=== PATIENT | male | born 1945 | race Caucasian/White ===

== ENCOUNTER 2024-10-30 10:48 | Day surgery (SDC) | payer MEDICARE, BC, SELFPAY ==
[2024-10-30] VITALS (8 sets, daily range): BP systolic 113–140; BP diastolic 58–123; BMI 39.4
[2024-10-30 11:29] LABS: Mean Corp Hgb Conc. 32.6 g/dL (33.0-37.0); Mean Corpuscular Hgb 26.1 pg (27.0-31.0); Mean Corpuscular Volume 80.2 fL (80.0-94.0); Mean Platelet Volume 11.6 fL (7.4-10.4); Platelet Count 226 10^3/uL (130-400); Red Blood Cell Count 5.36 10^6/uL (4.70-6.10); White Blood Cell Count 10.1 10^3/uL (4.8-10.8)
[2024-10-30 11:36] LABS: Blood Urea Nitrogen 27 mg/dl (9-20); Calcium 9.2 mg/dl (8.4-10.2); Carbon Dioxide 28 mmol/L (22-30); Chloride 103 mmol/L (98-107); Estimated Creatinine Clearance 59 ml/min; Glucose 104 mg/dl (70-99); Potassium 4.9 mmol/L (3.5-5.1); Sodium 139 mmol/L (135-145); eGFR > 60.00
[2024-10-30 11:46] LABS: Glucose - Point of Care 87 mg/dl (70-99)
--- NOTE | 2024-10-30 18:16 | ITS.CL.PACE ---
Accounting Supervisor - Pacemaker Implant
Pacemaker Implant
Procedure Report:
Primary Care Doctor: Belinda Guan MD
Primary Development Planner: Cliff Damon MD
Procedure Date: 10/30/2024
Name of procedure:
1. Placement of a single-chamber pacemaker
2. Subclavian venography
History:
1. Patient is pleasant 79-year-old male with a past medical history significant for diabetes mellitus type 2, obesity, excessive edema, hypertension, permanent atrial fibrillation previously rate controlled however patient experienced symptomatic
bradycardia off AV matty blocking agents.
2. Please refer to H&P for complete history.
Indication:
Symptomatic irreversible bradycardia not on AV matty blocking agents
Permanent Atrial Fibrillation
Methods:
After informed consent was obtained, the patient was brought to the EP laboratory in a postabsorptive, nonsedated state. Peripheral IV access was established. Prophylactic antibiotics were administered prior to incision. Continuous ECG, blood
pressure, and pulse oximetry were initiated. Cardioversion patch electrodes were placed on the patient's chest and back. A grounding patch was applied to the skin. Sedation was administered by anesthesia services.
In order to define the extrathoracic portion of the subclavian vein and exclude significant venous obstruction or anomalous anatomy, subclavian venography was performed prior to the procedure. Using the patient's left peripheral IV, contrast was
injected and images were recorded. The left subclavian vein and SVC were found to be widely patent.
The left chest was prepared and draped in a sterile fashion. A time-out was performed. Local anesthesia was injected in the subcutaneous tissue in the infraclavicular area. An incision was made medial to the deltopectoral groove. The subcutaneous
tissue was dissected the level of the prepectoral fascia. A subcutaneous pocket was created. Under fluoroscopic guidance and with the assistance of the images from the venogram, a venipuncture was made using micropuncture and modified Seldinger
technique. This was performed in the extrathoracic portion of the subclavian vein. Guidewire was passed and peel-away sheaths was placed, and used to advance lead into the circulation.
Fluoroscopy was used to determine likely anatomic site for left bundle branch pacing. The [employer] Solutionstronic C315 sheath was used to deliver the Medtronic 3830 Selectsecure pacing lead with the helix exposed just exposed from the sheath tip during continuous
monitoring when pacemapping the septum during gentle clockwise rotation to obtain a paced QRS morphology of a W pattern in lead V1. Once the suspected optimal site was identified, lead deployment was performed with several rapid rotations as paced
QRS morphology was intermittently monitored until a paced QRS complex in lead V1 demonstrated development of an R wave (qR or rSR). Unipolar pacing impedance dropped by approximately 100-200 ohms suggesting it had reached the left ventricular
subendocardial. During testing after sheath split, the 3830 lead dislodged. Access reobtained in fashion as mentioned above and the 3830 was removed from circulation under fluoroscopy. 5076 active fix lead was advanced into circulation, into the
RVOT with RV ectopy noted. Following multiple attempts, a stable position was found on the apical RV septum. However, during lead tie down, there was acute lead dislodgement. Access reobtained as mentioned above and the 5076 lead was removed from
circulation under fluoroscopy. Next, coronary sinus cannulation was attempted for placement of a LV active fix lead. A multipurpose sheath for CS lead placement was advanced through the short peel-away sheath. However, despite multiple attempts, CS
was unable to be cannulated. A non-selective venogram at the CS ostium demonstrated CS occlusion/atresia of the CS. The multipurpose CS lead sheath was removed. Next, a passive fix pacing lead was advanced into circulation, into the RVOT with RV
ectopy noted, and placed in the RV apical septum in standard fashion. After careful monitoring, the sheath was split. The lead was tied into place with suture in standard fashion. An additional suture was placed around the access site for
hemostasis. Lead pacing and impedance remained stable during this process.
The pocket was flushed with antibiotic solution and hemostasis was assured. The generator was connected to the leads and placed inside the pocket. The device was sutured to the fascia. Antibiotic envelope was used. Surgiflo was applied. The wound
was closed with 3 running layers of absorbable suture, and steri-strips were applied. Dressing applied over steri-strips in standard fashion. Device testing at case completion demonstrated stable lead position and values.
Following the procedure, the patient was noted to be agitated. Patient followed directions, AOx2, moving all extremities, PERRLA. However, due to the mental status change, neuro eval/rapid was called. I spoke with Dr Farris who stated patient out
of TNK window but advised for CT head, CTA head and neck, lab work. During evaluation, patient's mental status continued to improve with improving agitation. No apparent slurred speech or deficits. Dr Farris stated she would see patient as consult
in AM.
Lead parameters and device programming:
- RV Lead (Medtronic, Model 4074, #[id number]): Sensing 5.0 mV, Pacing threshold 04 V at 0.4 ms, Imp 820 Ohm
- Device: Medtronic, [id number] pacemaker (#[id number]), programmed VVIR 60-130 ppm
Conclusions:
1. Successful placement of a single-chamber pacemaker
2. Subclavian venography
Recommendations:
1. Admit
2. Chest xray tonight, [facility] in AM
3. IV antibiotics while the patient is admitted.
4. OK to resume home medications as indicated; plan to resume OAC on 11/02/2024 if patient stable at DC
5. Pressure dressing to be removed in AM, aquacell to remain until wound check
6. Follow-up will be arranged in the office in 7-10 days post-discharge
7. As noted above, CT Head, CTA head and neck, lab work
Marvin Goins DO, FACC
Clinical Cardiac Solution Architect
cc: Dr Cliff Damon; Belinda Guan MD
[2024-10-30 18:35] LABS: Glucose - Point of Care 109 mg/dl (70-99)
[2024-10-30] MEDS: SYMBICORT 160/4.5 MCG INHALER 2 PUFF INH (19:29)
--- NOTE | 2024-10-30 20:15 | PTCARENOTE ---
Rec'd report from [facility] from ICU; Pt was RR in PACU for change of mental status s/p PPM insertion. Rec'd pt after Head CT; Pt transferred by staff from stretcher to bed. Pt AAOx3 w/no c/o CP or SOB. Pt speaks [place] Leonean as his primary language but
speaks & understand Occitan very well. Pt w/L chest wall PPM site w/dressing C/D/I w/no signs or symptoms of bleeding or hematoma. Pt's VSS w/HR 60 & BP 113/59 on arrival. Pt's 98% on NRB mask. Pt's switched to 2L O2 via NC. Pt reports wearing O2 at
home at bedtime. Bed alarm in place for safety. Pt's at bedside & call stark within reach.
[2024-10-30] MEDS: LIPITOR 40 MG PO (21:02)
[2024-10-30] MEDS: FLUSH (NSS) 2 FLUSH IV (21:02)
[2024-10-30] MEDS: ANCEF 5 IV (21:02)
[2024-10-30] MEDS: TOPROL XL 25 MG PO (21:02)
[2024-10-30 23:13] LABS: Glucose - Point of Care 237 mg/dl (70-99)
[2024-10-30 23:53] LABS: Hematocrit 39.4 % (39.0-52.0); Hemoglobin 12.7 g/dL (13.0-18.0); Mean Corp Hgb Conc. 32.2 g/dL (33.0-37.0); Mean Corpuscular Hgb 26.1 pg (27.0-31.0); Mean Corpuscular Volume 81.1 fL (80.0-94.0); Mean Platelet Volume 10.4 fL (7.4-10.4); Platelet Count 192 10^3/uL (130-400); Red Blood Cell Count 4.86 10^6/uL (4.70-6.10); Red Cell Dist. Width 15.9 % (11.5-14.5); White Blood Cell Count 8.7 10^3/uL (4.8-10.8)
[2024-10-31 00:12] LABS: ALT (SGPT) 18 U/L (0-50); AST (SGOT) 25 U/L (17-59); Albumin 3.3 g/dl (3.5-5.0); Alkaline Phosphatase 51 U/L (38-126); Blood Urea Nitrogen 30 mg/dl (9-20); Calcium 8.4 mg/dl (8.4-10.2); Carbon Dioxide 25 mmol/L (22-30); Chloride 103 mmol/L (98-107); Estimated Creatinine Clearance 65 ml/min; Glucose 255 mg/dl (70-99); Potassium 5.1 mmol/L (3.5-5.1); Sodium 136 mmol/L (135-145); Total Bilirubin 0.8 mg/dl (0.2-1.3); Total Protein 5.6 g/dl (6.3-8.2); eGFR > 60.00
[2024-10-31 02:03] VITALS: BMI 39.6
[2024-10-31 04:57] VITALS: BP 126/75
[2024-10-31] MEDS: ANCEF 5 IV (04:58)
[2024-10-31] MEDS: FLUSH (NSS) 2 FLUSH IV (04:59)
[2024-10-31 05:32] LABS: Hematocrit 39.4 % (39.0-52.0); Hemoglobin 12.8 g/dL (13.0-18.0); Mean Corp Hgb Conc. 32.5 g/dL (33.0-37.0); Mean Corpuscular Hgb 26.4 pg (27.0-31.0); Mean Corpuscular Volume 81.4 fL (80.0-94.0); Platelet Count 190 10^3/uL (130-400); Red Blood Cell Count 4.84 10^6/uL (4.70-6.10); Red Cell Dist. Width 15.9 % (11.5-14.5); White Blood Cell Count 7.8 10^3/uL (4.8-10.8)
[2024-10-31 06:16] LABS: Blood Urea Nitrogen 29 mg/dl (9-20); Calcium 8.8 mg/dl (8.4-10.2); Carbon Dioxide 27 mmol/L (22-30); Chloride 105 mmol/L (98-107); Estimated Creatinine Clearance 66 ml/min; Glucose 160 mg/dl (70-99); Potassium 5.2 mmol/L (3.5-5.1); Sodium 138 mmol/L (135-145); eGFR > 60.00
--- NOTE | 2024-10-31 06:18 | PTCARENOTE ---
Pt continues to be AAOx3 w/no signs of mental status issues. Neurochecks WNL. Pt able to transfer w/contact guard assistance to . [facility] dressing site C/D/I w/no signs or symptoms of bleeding or hematoma. Pt w/call stark within reach. No addtl needs
at this time.
[2024-10-31 07:27] VITALS: BMI 39.6
[2024-10-31 07:36] VITALS: BP 133/70
[2024-10-31] MEDS: SYMBICORT 160/4.5 MCG INHALER 2 PUFF INH (08:08)
[2024-10-31] MEDS: SPIRIVA RESPIMAT 2.5 MCG 2 PUFF INH (08:09)
[2024-10-31] MEDS: ADVAIR HFA 45/21 MCG INHALER 2 PUFF INH (08:09)
[2024-10-31 08:11] LABS: Glucose - Point of Care 92 mg/dl (70-99)
[2024-10-31] MEDS: TOPROL XL 25 MG PO (08:12)
[2024-10-31] MEDS: LASIX 20 MG IV (08:12)
[2024-10-31] MEDS: COLCHICINE 0.3 MG PO (08:13)
[2024-10-31] MEDS: TYLENOL 650 MG PO ×2 (08:16→13:23)
--- NOTE | 2024-10-31 08:22 | CON.NEURO ---
Consultation
Order
Requesting Provider: Marvin Goins MD
Reason for Consult: stroke alert
Called in 18:39 on 10/30/2024
Neurology Consultation Note
HPI: This is a 79 year old man who underwent elective PPM on 10/30/2024 and developed agitation following the procedure.
Last time seen in [place]: 14:13.
The patient denies having headache, change in vision, strength, sensation of speech or language.
MAR: Dexamethasone 8 mg given at 14:30 on 10/30/2024, propofol 60 mg given at 16: 46, midazolam 2 mg given at 14:24.
CT head wo contrast (10/30/2024)�mild atrophy.
CTA head/neck (10/30/2024)�no hemodynamically significant stenosis.
Labs: Glucose�255, normal WBCs, sodium.
PDMP�no recently prescribed medications.
PMH: PA A-Fib, SSS, HTN, DM, CHF, vit B12, BMI 39.4, gout
PSH: PPM, bilateral cataract surgery
SH: , originally from 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
FH: Not contributory to current presentation
All: NKDA
ROS: Constitutional: Negative. Negative for chills, fever and unexpected weight change.
HENT: Negative for ear pain, hearing loss, tinnitus and trouble swallowing.
Eyes: Negative. Negative for photophobia, pain and visual disturbance.
Respiratory: Negative for cough, choking and shortness of breath.
Cardiovascular: Negative for chest pain, palpitations and leg swelling.
Gastrointestinal: Negative for abdominal pain and vomiting.
Endocrine: Negative. Negative for cold intolerance.
Genitourinary: Negative for dysuria, flank pain and urgency.
Musculoskeletal: Negative for back pain, gait problem, neck pain and neck stiffness.
Skin: Negative for rash.
Allergic/Immunologic: Negative. Negative for immunocompromised state.
Neurological: Positive for transient encephalopathy
Psychiatric/Behavioral: Negative for behavioral problems, confusion and hallucinations.
General: Well developed. In no acute distress.
Cardio: Regular rate and rhythm without murmur. Extremities are without cyanosis or edema.
Neuro:
Mental Status: Alert, oriented to person, place, and date. Normal attention and recall. Good fund of knowledge. Follows complex requests across the midline. Comprehension, naming, and repetition intact. Immediate recall 3/3.
Cranial Nerves: Pupils are equally round, surgical. EOMs full. Visual cabral full to confrontation. No ptosis. No nystagmus. V1-V3 intact to light touch and pinprick bilaterally, symmetric. Face symmetric. Mildly impaired hearing AU. The
palate elevated well. SCMs and traps 5/5. Tongue midline. No dysarthria.
Motor: Normal bulk and tone. No pronator or arm drift. Strength 5/5 throughout. No clonus.
Reflexes: 2+ throughout the upper extremities and knees. Plantar responses flexor bilaterally.
Sensory: Normal vibration at the ankles
Coordination: No dysmetria or tremor.
Gait: deferred
Assessment and Plan:
I. Transient encephalopathy, likely toxic (from dexamethasone). Low suspicion for cerebrovascular event given lack of stroke syndrome.
II. AFib
III. Hyperglycemia
-Strict glycemic and blood pressure control
-Restart Eliquis for stroke prophylaxis based on cardiology recommendation
-No need in additional neurological testing
-Please recall neurology services any questions or concerns
I personally reviewed all radiology and labs along with past medical records pertinent to current medical problems. Total time spent in patient care is 60 minutes.
Thank you for allowing us to participate in the care of this patient. We will continue to follow. Please do not hesitate to contact us with any questions or concerns.
Subjective/Objective
Subjective Data
Date of Service: October 31, 2024
Objective Data
Vital Signs
Temp Pulse Resp BP Pulse Ox
36.6 C 63 20 133/70 94
10/31/24 04:57 10/31/24 08:00 10/31/24 04:57 10/31/24 07:36 10/31/24 04:57
Lab Results
10/31/24 05:04
10/31/24 05:04
Sodium 138 mmol/L (135-145) 10/31/24 05:04
Potassium 5.2 mmol/L (3.5-5.1) H 10/31/24 05:04
BUN 29 mg/dl (9-20) H 10/31/24 05:04
Glucose 160 mg/dl (70-99) H 10/31/24 05:04
Calcium 8.8 mg/dl (8.4-10.2) 10/31/24 05:04
Patient Allergies
No Known Allergies Allergy (Verified 10/30/24 11:37)
Medications
-
Active Medications
Generic Name Dose Route Start Last Admin
Trade Name Freq PRN Reason Stop Dose Admin
Acetaminophen 650 mg 10/30/24 11:54
Acetaminophen 325 Mg Tablet PO 11/27/24 11:53
Q4HPRN PRN
MILD PAIN
Atorvastatin Calcium 40 mg 10/30/24 22:00 10/30/24 21:02
Atorvastatin (Lipitor) 40 Mg Tablet PO 11/27/24 21:59 40 mg
HS MAGUE Administration
Budesonide/Formoterol Fumarate 2 puff 10/30/24 20:00 10/31/24 08:08
Symbicort Inhaler 160/4.5 INH 11/27/24 19:59 2 puff
R BID MAGUE Administration
Protocol
Colchicine 0.3 mg 10/31/24 08:00
Colchicine 0.6 Mg Tablet PO 11/28/24 07:59
DAILY MAGUE
Dextrose 12.5 grams 10/30/24 15:19
Dextrose 50% (0.5 Grams/Ml) 50 Ml Syringe IV 11/27/24 15:18
[id number] PRN
hypoglycemia
Protocol
Glucagon 1 mg 10/30/24 15:19
Glucagon 1 Mg Vial IM 11/27/24 15:18
PRN PRN
hypoglycemia
Protocol
Insulin Aspart 0 units 10/30/24 16:30 10/30/24 19:52
Insulin Aspart Moderate Resistance 300 Units/3 Ml Pen.Injctr SC 11/27/24 16:29 Not Given
AC MAGUE
Protocol
Metoprolol Succinate 25 mg 10/30/24 20:00 10/30/24 21:02
Metoprolol 25 Mg Extended Release Tablet PO 11/27/24 19:59 25 mg
BID MAGUE Administration
Fluticasone/Salmeterol 2 puff 10/31/24 08:00 10/31/24 08:09
Advair Hfa 45/21 Inhaler INH 11/28/24 07:59 2 puff
R DAILY MAGUE Administration
Protocol
Sodium Chloride 0 flush 10/30/24 06:00 10/31/24 04:59
Sodium Chloride 0.9% (Flush) Syringe IV 11/27/24 05:59 2 flush
PER PROTOCOL MAGUE Administration
Tiotropium [facility] 2 puff 10/31/24 08:00 10/31/24 08:09
Tiotropium (Spiriva Respimat) 2.5 Mcg Inhaler INH 11/28/24 07:59 2 puff
R DAILY MAGUE Administration
Protocol
Home Medications
�Medication �Instructions �Recorded
apixaban 5 mg tablet (Eliquis) 5 mg BID 10/30/24
atorvastatin 40 mg tablet 40 mg PO HS 10/30/24
cholecalciferol (vitamin D3) 50 50 mcg PO DAILY 10/30/24
mcg (2,000 unit) capsule (Vitamin
D3)
colchicine 0.6 mg tablet 0.3 mg PO DAILY 10/30/24
fluticasone fur. 200 mcg-umeclid 1 inh inhalation DAILY 10/30/24
62.5 mcg-vilant 25 mcg
inhalat.powder (Trelegy Ellipta)
furosemide 20 mg tablet (Lasix) 20 mg PO DAILY 10/30/24
metformin 500 mg tablet 1,000 mg PO DAILY 10/30/24
metoprolol succinate 25 mg 25 mg PO BID 10/30/24
tablet,extended release 24 hr
Vital Signs and Labs
-
Vital Signs and Labs:
Vital Signs
Temp Pulse Resp BP Pulse Ox
36.6 C 63 18 133/70 98
10/31/24 08:29 10/31/24 08:00 10/31/24 08:29 10/31/24 07:36 10/31/24 08:29
Lab Results
10/31/24 05:04
10/31/24 05:04
Sodium 138 mmol/L (135-145) 10/31/24 05:04
Potassium 5.2 mmol/L (3.5-5.1) H 10/31/24 05:04
BUN 29 mg/dl (9-20) H 10/31/24 05:04
Glucose 160 mg/dl (70-99) H 10/31/24 05:04
Calcium 8.8 mg/dl (8.4-10.2) 10/31/24 05:04
Medications
-
Medications:
Generic Name Dose Route Start Last Admin
Trade Name Freq PRN Reason Stop Dose Admin
Acetaminophen 650 mg 10/30/24 11:54 10/31/24 08:16
Acetaminophen 325 Mg Tablet PO 11/27/24 11:53 650 mg
Q4HPRN PRN Administration
MILD PAIN
Atorvastatin Calcium 40 mg 10/30/24 22:00 10/30/24 21:02
Atorvastatin (Lipitor) 40 Mg Tablet PO 11/27/24 21:59 40 mg
HS MAGUE Administration
Budesonide/Formoterol Fumarate 2 puff 10/30/24 20:00 10/31/24 08:08
Symbicort Inhaler 160/4.5 INH 11/27/24 19:59 2 puff
R BID MAGUE Administration
Protocol
Colchicine 0.3 mg 10/31/24 08:00 10/31/24 08:13
Colchicine 0.6 Mg Tablet PO 11/28/24 07:59 0.3 mg
DAILY MAGUE Administration
Dextrose 12.5 grams 10/30/24 15:19
Dextrose 50% (0.5 Grams/Ml) 50 Ml Syringe IV 11/27/24 15:18
[id number] PRN
hypoglycemia
Protocol
Glucagon 1 mg 10/30/24 15:19
Glucagon 1 Mg Vial IM 11/27/24 15:18
PRN PRN
hypoglycemia
Protocol
Insulin Aspart 0 units 10/30/24 16:30 10/31/24 08:12
Insulin Aspart Moderate Resistance 300 Units/3 Ml Pen.Injctr SC 11/27/24 16:29 Not Given
AC MAGUE
Protocol
Metoprolol Succinate 25 mg 10/30/24 20:00 10/31/24 08:12
Metoprolol 25 Mg Extended Release Tablet PO 11/27/24 19:59 25 mg
BID MAGUE Administration
Fluticasone/Salmeterol 2 puff 10/31/24 08:00 10/31/24 08:09
Advair Hfa 45/21 Inhaler INH 11/28/24 07:59 2 puff
R DAILY MAGUE Administration
Protocol
Sodium Chloride 0 flush 10/30/24 06:00 10/31/24 04:59
Sodium Chloride 0.9% (Flush) Syringe IV 11/27/24 05:59 2 flush
PER PROTOCOL MAGUE Administration
Tiotropium [facility] 2 puff 10/31/24 08:00 10/31/24 08:09
Tiotropium (Spiriva Respimat) 2.5 Mcg Inhaler INH 11/28/24 07:59 2 puff
R DAILY MAGUE Administration
Protocol
Home Medications
-
Home Medications
apixaban 5 mg tablet (Eliquis) 5 mg BID 10/30/24
atorvastatin 40 mg tablet 40 mg PO HS 10/30/24
cholecalciferol (vitamin D3) 50 mcg (2,000 unit) capsule (Vitamin D3) 50 mcg PO DAILY 10/30/24
colchicine 0.6 mg tablet 0.3 mg PO DAILY 10/30/24
fluticasone fur. 200 mcg-umeclid 62.5 mcg-vilant 25 mcg inhalat.powder (Trelegy Ellipta) 1 inh inhalation DAILY 10/30/24
furosemide 20 mg tablet (Lasix) 20 mg PO DAILY 10/30/24
metformin 500 mg tablet 1,000 mg PO DAILY 10/30/24
metoprolol succinate 25 mg tablet,extended release 24 hr 25 mg PO BID 10/30/24
--- NOTE | 2024-10-31 10:13 | W.PN.CARDCBS ---
Addendum entered and electronically signed by Scott Muniz MD 10/31/24 10:26:
Patient seen and examined
Agree with SHOE CLEANER note assessment
Agree with SHOE CLEANER plan
Exam:
Pacemaker site clean dry and intact
Appropriate ventricular sensing and pacing on telemetry with underlying atrial fibrillation
Chest x-ray personally reviewed with lead in the RV apex
Imaging studies from overnight reviewed
Cor irregularly irregular no murmur
Lungs clear to auscultation bilaterally
Impression:
Symptomatic bradycardia
post SC PPM Medtronic 10/30/24
post procedure agitation/confusion - resolved
Permanent Afib
HTN
HLD
NIDDM
Obesity
Gout
Plan:
Appreciate neurologic consult and imaging
CXR no PTX but small R effusion and mild CHF
admits to some dyspnea, will give 20mg IV lasix this am
resume PO lasix at d/c I think he is stable for discharge
Hold Eliquis today, resume Monday am
Hold Metformin 48 hours post procedure
Activity restrictions reviewed
incision check 1 week at [facility] arranged
continue cardiac care with Dr. Damon
Original Note:
Today's Communication / Plan
-
post PPM stable for d/c home today
Impression / Plan
-
Primary Care Doctor: Belinda Guan MD
Primary Heel Brusher: Cliff Damon MD
79-year-old male with a past medical history significant for diabetes mellitus type 2, obesity, excessive edema, hypertension, permanent atrial fibrillation previously rate controlled however patient experienced symptomatic bradycardia off AV matty
blocking agents.
Impression:
Symptomatic bradycardia
post SC PPM Medtronic 10/30/24
post procedure agitation/confusion - resolved
Permanent Afib
HTN
HLD
NIDDM
Obesity
Gout
Plan:
post device had mild agitation and confusion
appreciate neuro consult, CTA h/n neg
AAOX3 this am no neuro deficits
site stable
CXR no PTX but small R effusion and mild CHF
admits to some dyspnea, will give 20mg IV lasix this am
resume PO lasix at d/c
Hold Eliquis today, resume Monday am
Hold Metformin 48 hours post procedure
Activity restrictions reviewed
incision check 1 week at [facility]
continue cardiac care with Dr. Damon
home today
Progress Note - Heel Brusher
Subjective
Date of Service: October 31, 2024
no cp, mild dyspnea with ambulation
Objective
Labs:
10/31/24 05:04
10/31/24 05:04
Labs
Hgb 12.8 g/dL (13.0-18.0) L 10/31/24 05:04
Hct 39.4 % (39.0-52.0) 10/31/24 05:04
Plt Count 190 10^3/uL (130-400) 10/31/24 05:04
Sodium 138 mmol/L (135-145) 10/31/24 05:04
Potassium 5.2 mmol/L (3.5-5.1) H 10/31/24 05:04
BUN 29 mg/dl (9-20) H 10/31/24 05:04
Creatinine 1.0 mg/dL (0.7-1.3) 10/31/24 05:04
Glucose 160 mg/dl (70-99) H 10/31/24 05:04
Vital Signs and I&O:
Vital Signs
Temp Pulse Resp BP Pulse Ox
97.8 F 63 18 133/70 98
10/31/24 08:29 10/31/24 08:00 10/31/24 08:29 10/31/24 07:36 10/31/24 08:29
Vital Signs
Temp Pulse Resp BP Pulse Ox
97.8 F 63 18 133/70 98
10/31/24 08:29 10/31/24 08:00 10/31/24 08:29 10/31/24 07:36 10/31/24 08:29
Intake & Output
10/29/24 10/30/24 10/31/24 11/01/24
06:59 06:59 06:59 06:59
Intake Total 1460 / 1460
Balance 1460 / 1460
Physical Exam
Physical Exam
NAD< AOX3
S1, S2, RRR
CTAB, non labored, no wheeze, mildly diminished b/l bases
SNTND Bsx4
L CW Dressing c/d/i, no HT, pressure dressing removed
No LE edema
[2024-10-31 10:19] LABS: Glycohemoglobin (HgbA1c) 6.4 % (4.0-5.6)
[2024-10-31 11:02] VITALS: BP 118/60
--- NOTE | 2024-10-31 11:47 | CM ---
Chart reviewed. Patient is independent of ADLS, lives with his in a [address], 0 [address]ICIA, ambulates with a SPC. Plan is for the patient to return home.
--- NOTE | 2024-10-31 13:37 | PTCARENOTE ---
Pt seen by and Yoli Crawley NP. Pt oriented X 3. Pt given IV lasix he reported having to wait for his urine to come. Bladder scan showed 158mls. Pt later able to urinate. Telemetry and 3 IV devices removed. Discharge instructions reviewed
with pt and his regarding activity adn driving restrictions, pain management, medications and their possible side effects, reporting cares and concerns and follow up appt's. Very good understanding taught back to RN. Pt escorted out via
wheelchair wearing immobilizer and discharged to home. Pt understands he will wear immobilizer today and for the next few nights.
--- NOTE | 2024-10-31 14:16 | W.DS.TRANS ---
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
-
Discharge Instructions:
Discharge Diagnosis/Procedures Pacemaker implant
Diet Low Cholesterol
Driving Restrictions No driving for 1 week
Bathing Restrictions OK to Shower
Instructions:
Stand-Alone Forms: DC Inst - Implanted Device
Changes to Home Medications: No
Discharge Medications:
DC Medications w/original date entered in [facility]
apixaban 5 mg tablet (Eliquis) 5 mg BID 10/30/24
atorvastatin 40 mg tablet 40 mg PO HS 10/30/24
cholecalciferol (vitamin D3) 50 mcg (2,000 unit) capsule (Vitamin D3) 50 mcg PO DAILY 10/30/24
colchicine 0.6 mg tablet 0.3 mg PO DAILY 10/30/24
fluticasone fur. 200 mcg-umeclid 62.5 mcg-vilant 25 mcg inhalat.powder (Trelegy Ellipta) 1 inh inhalation DAILY 10/30/24
furosemide 20 mg tablet (Lasix) 20 mg PO DAILY 10/30/24
metformin 500 mg tablet 1,000 mg PO DAILY 10/30/24
metoprolol succinate 25 mg tablet,extended release 24 hr 25 mg PO BID 10/30/24
Home Medication Changes
Pending Results: No
== END 2024-10-31 13:30 | disposition home or self-care (01) ==
LOC: CATH 10:48
PROVIDERS: Nurse Practitioner Adult Health; ATTENDING PHYSICIAN Internal Medicine Cardiovascular Disease; FAMILY PHYSICIAN Family Medicine; OTHER PHYSICIAN Internal Medicine Cardiovascular Disease
DX: I49.5 Sick sinus syndrome (principal); M10.9 Gout, unspecified; I50.9 Heart failure, unspecified; I11.0 Hypertensive heart disease with heart failure; E11.65 Type 2 diabetes mellitus with hyperglycemia; I48.21 Permanent atrial fibrillation; Z87.891 Personal history of nicotine dependence; E78.5 Hyperlipidemia, unspecified; Z79.84 Long term (current) use of oral hypoglycemic drugs; E66.9 Obesity, unspecified; Z79.01 Long term (current) use of anticoagulants; Z79.899 Other long term (current) drug therapy
CPT/HCPCS: 33207; 70496; 70498; 71045; 80048; 80053; 82962; 83036; 83735; 85027; 93005; 94640; C1786; C1887; C1898; Q9967